=== PATIENT | male | born 1990 | race Caucasian/White ===

== ENCOUNTER 2022-02-24 11:28 | Emergency (ER) | payer BC, SELFPAY ==
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
[2022-02-24 11:38] VITALS: BP 130/90; PULSE 88; RESP 16; TEMP 37.7; O2SAT 99
== END 2022-02-24 11:54 | disposition home or self-care (01) ==
PROVIDERS: Emergency Provider Nurse Practitioner Family
DX: T22.211A Burn of second degree of right forearm, initial encounter (principal); X12.XXXA Contact with other hot fluids, initial encounter
CPT/HCPCS: 99213; G0463